=== PATIENT | male | born 1955 | race Caucasian/White ===

== ENCOUNTER 2016-07-29 11:28 | Emergency (ER) | payer OTHER ==
[~2016-07-29] VITALS: Ht 180.3 cm; Wt 104.3 kg
--- OUTSIDE RECORDS SUMMARY | 2016-07-29 11:33 | XMS REPORT | Continuity of Care Document ---
Author Author [facility] Organization [facility] Address Unknown Phone Unavailable Allergies Active Description Code Type Severity Reaction Onset Reported/Identified Relationship to Patient Clinical Status Yes Sulfa (Sulfonamide Antibiotics) [id number] Drug Allergy Unknown N/A 04/29/2016 Medications Problems Date Dx Coded Attending Type Code Diagnosis Diagnosed By 05/18/1448 AMERICO LINDSEY MD, Ot Z47.1 05/18/1448 AMERICO LINDSEY MD Ot Z96.652 07/14/2015 AMERICO LINDSEY MD, Ot Z47.1 07/14/2015 AMERICO LINDSEY MD, Ot Z96.652 07/17/2015 HODAN TRUONG DO Ot M79.89 07/20/2015 HODAN TRUONG DO, Ot M79.89 07/31/2015 AMERICO LINDSEY MD Ot Z47.1 AFTERCARE FOLLOWING JOINT REPLACEMENT NICKERSON 07/31/2015 AMERICO LINDSEY MD Ot Z96.652 PRESENCE OF LEFT ARTIFICIAL KNEE JOINT 04/18/2016 HODAN TRUONG DO Ot M79.89 OTHER SPECIFIED SOFT TISSUE DISORDERS 04/29/2016 PASQUALE ABDULLAHI MD Ot K62.5 HEMORRHAGE OF ANUS AND RECTUM 04/29/2016 PASQUALE ABDULLAHI MD Ot Z01.818 ENCOUNTER FOR OTHER PREPROCEDURAL EXAMIN 05/02/2016 KAYLEN ORTEGA, PASQUALE Alanis Ot K57.90 DVRTCLOS OF INTEST, PART UNSP, W/O PERF 05/02/2016 PASQUALE ABDULLAHI MD Ot K63.5 POLYP OF COLON 05/03/2016 PASQUALE ABDULLAHI MD Ot K57.90 DVRTCLOS OF INTEST, PART UNSP, W/O PERF 05/03/2016 PASQUALE ABDULLAHI MD Ot K63.5 POLYP OF COLON 05/04/2016 PASQUALE ABDULLAHI MD Ot K57.90 DVRTCLOS OF INTEST, PART UNSP, W/O PERF 05/04/2016 PASQUALE ABDULLAHI MD Ot K63.5 POLYP OF COLON 05/08/2016 KAYLEN ORTEGA, PASQUALE Alanis Ot K57.90 DVRTCLOS OF INTEST, PART UNSP, W/O PERF 05/08/2016 PASQUALE ABDULLAHI MD Ot K63.5 POLYP OF COLON 05/18/2016 PASQUALE ABDULLAHI MD Ot K57.90 DVRTCLOS OF INTEST, PART UNSP, W/O PERF 05/18/2016 PASQUALE ABDULLAHI MD, Ot K63.5 POLYP OF COLON Procedures Results Encounters ACCT No. Visit Date/Time Discharge Status Pt. Type Provider Facility Loc./Unit Complaint [id number] 05/02/2016 07:51:00 2015 11:10:00 DIS Outpatient [facility] [id number] 04/29/2016 05:34:00 2015 08:58:00 DIS Outpatient PASQUALE ABDULLAHI MD [facility] PREOP RECTAL BLEEDING [id number] 07/31/2015 14:05:00 2015 14:49:00 DIS Outpatient AMERICO LINDSEY MD [facility] REHAB S/P L TKR [id number] 07/14/2015 10:57:00 ACT Outpatient HODAN TRUONG DO [facility] RAD SWELLING LT KNEE
[2016-07-29 12:12] LABS: BILIRUBIN,URINE NEGATIVE (NEGATIVE); KETONES,URINE NEGATIVE (NEGATIVE); LEUKOCYTE ESTERASE ,URINE NEGATIVE (NEGATIVE); NITRITE,URINE NEGATIVE (NEGATIVE); PH,URINE 6 (5-9); PROTEIN,URINE 1+ (NEGATIVE); UROBILINOGEN,URINE NORMAL (NORMAL)
--- NOTE | 2016-07-29 12:13 | ED Abdominal Pain ---
General Chief Complaint: Abdominal/GI Problems Stated Complaint: LOWER ABD PAIN Source of Information: Patient Exam Limitations: No Limitations History of Present Illness Time Seen By Provider: 12:00 Initial Comments The patient is a 60-year-old white male who reports that he ate peanuts lately yesterday afternoon. About 3 hours later began to have left lower quadrant abdominal pain.. He had had a similar episode some time ago after eating strawberries. He reports that he had a colonoscopy here about 2-3 months ago. He has no recollection of being told he had diverticuli. There is been no previous firm diagnosis of diverticulitis. His last bowel movement was normal last evening. He was seen by Dr. Truong in the office and sent out here for further evaluation. Timing/Duration: 12-24 Hours Severity/Quality: Mild, Moderate Location: LLQ Radiation: No Radiation Activities at Onset: None Allergies and Home Medications Allergies Coded Allergies: Sulfa (Sulfonamide Antibiotics) (Verified Allergy, Unknown, 04/29/16) Home Medications No Active Prescriptions or Reported Meds Review of Systems Constitutional: see HPI EENTM: No Symptoms Reported Respiratory: No Symptoms Reported Cardiovascular: No Symptoms Reported Gastrointestinal: See HPI Genitourinary: No Symptoms Reported Musculoskeletal: no symptoms reported Skin: no symptoms reported Psychiatric/Neurological: No Symptoms Reported Endocrine: No Symptoms Reported Hematologic/Lymphatic: No Symptoms Reported Past Wrwujhu-Batnwr-Yytedj Hx Patient Social History Type Used: Cigarettes Recent Foreign Travel: No Contact w/Someone Who Travel: No Recent Hopitalizations: No Seasonal Allergies Seasonal Allergies: No Surgeries HX Surgeries: Yes (Left TKR) Surgeries: Joint Replacement Respiratory Hx Respiratory Disorders: No Cardiovascular Hx Cardiac Disorders: No Neurological Hx Neurological Disorders: No Genitourinary Hx Genitourinary Disorders: No Gastrointestinal Hx Gastrointestinal Disorders: No Musculoskeletal Hx Musculoskeletal Disorders: Yes Musculoskeletal Disorders: Arthritis Endocrine Hx Endocrine Disorders: No HEENT HX ENT Disorders: No Cancer Hx Cancer: No Psychosocial Hx Psychiatric Problems: No Integumentary HX Skin/Integumentary Disorder: No Blood Transfusions Hx Blood Disorders: No Physical Exam Vital Signs VS - Last 72 Hours, by Label 07/29/16 12:08 Temp 98.2 Pulse 78 Resp 18 B/P 143/92 Pulse Ox 95 O2 Delivery Room Air Capillary Refill : General Appearance: mild distress HEENT: normal ENT inspection Neck: full range of motion Respiratory: chest non-tender lungs clear normal breath sounds no respiratory distress no accessory muscle use Cardiovascular: normal peripheral pulses regular rate, rhythm no edema no gallop no JVD no murmur Gastrointestinal: normal bowel sounds Extremities: normal range of motion non-tender normal inspection no pedal edema no calf tenderness normal capillary refill pelvis stable Back: no CVA tenderness 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 slate II-XII nml as tested no motor/sensory deficits alert normal mood/affect oriented x 3 Skin: normal color warm/dry Lymphatic: no adenopathy Progress/Results/Core Measures Results/Orders Lab Results Laboratory Tests Test 07/29/16 11:50 07/29/16 11:55 Range/Units Urine Bacteria NEGATIVE /HPF Urine Bilirubin NEGATIVE NEGATIVE Urine Casts NONE /LPF Urine Clarity CLEAR Urine Color YELLOW Urine Crystals NONE /LPF Urine Culture Indicated NO Urine Glucose (UA) NEGATIVE NEGATIVE Urine Ketones NEGATIVE NEGATIVE Urine Leukocyte Esterase NEGATIVE NEGATIVE Urine Mucus NEGATIVE /LPF Urine Nitrite NEGATIVE NEGATIVE Urine Protein 1+ H NEGATIVE Urine RBC NONE /HPF Urine RBC (Auto) NEGATIVE NEGATIVE Urine Specific Erwin 1.015 L 1.016-1.022 Urine Squamous Epithelial Cells 0-2 /HPF Urine Urobilinogen NORMAL NORMAL MG/DL Urine WBC NONE /HPF Urine pH 6 5-9 Alanine Aminotransferase (ALT/SGPT) 33 0-55 U/L Albumin 4.4 3.2-4.5 G/DL Alkaline Phosphatase 65 40-136 U/L Anion Gap 12 5-14 MMOL/L Aspartate Amino Transf (AST/SGOT) 21 5-34 U/L BUN/Creatinine Ratio 11 Band Neutrophils 0 % Basophils # (Auto) 0.0 0.0-0.1 10^3/uL Basophils % (Manual) 0 % Basophils (%) (Auto) 0 0-10 % Blood Morphology Comment NORMAL Blood Urea Nitrogen 13 7-18 MG/DL Calcium Level 9.4 8.5-10.1 MG/DL Carbon Dioxide Level 23 21-32 MMOL/L Chloride Level 104 98-107 MMOL/L Creatinine 1.17 0.60-1.30 MG/DL Eosinophils # (Auto) 0.0 0.0-0.3 10^3/uL Eosinophils % (Manual) 0 % Eosinophils (%) (Auto) 0 0-10 % Estimat Glomerular Filtration Rate > 60 Glucose Level 115 H 70-105 MG/DL Hematocrit 46 40-54 % Hemoglobin 15.4 13.3-17.7 G/DL Lymphocytes # (Auto) 1.7 1.0-4.0 X 10^3 Lymphocytes % (Manual) 10 % Lymphocytes (%) (Auto) 9 L 12-44 % Mean Corpuscular Hemoglobin 31 25-34 PG Mean Corpuscular Hemoglobin Concent 33 32-36 G/DL Mean Corpuscular Volume 93 80-99 FL Mean Platelet Volume 11.3 H 7.4-10.4 FL Monocytes # (Auto) 2.5 H 0.0-1.0 X 10^3 Monocytes % (Manual) 10 % Monocytes (%) (Auto) 13 H 0-12 % Neutrophils # (Auto) 14.7 H 1.8-7.8 X 10^3 Neutrophils % (Manual) 80 % Neutrophils (%) (Auto) 78 H 42-75 % Platelet Count 220 130-400 10^3/uL Potassium Level 3.5 L 3.6-5.0 MMOL/L Red Blood Count 4.98 4.35-5.85 10^6/uL Red Cell Distribution Width 13.0 10.0-14.5 % Sodium Level 139 135-145 MMOL/L Total Bilirubin 1.7 H 0.1-1.0 MG/DL Total Protein 8.1 6.4-8.2 G/DL White Blood Count 19.0 H 4.3-11.0 10^3/uL My Orders Orders-AYESHA ROBLES MD Cbc With Automated Diff (07/29/16 11:28) Comprehensive Metabolic Panel (07/29/16 11:28) Ua Culture If Indicated (07/29/16 11:28) Abdomen/Kub 1view (07/29/16 11:28) Manual Differential (07/29/16 11:55) Ct Abdomen/Pelvis W (07/29/16 12:46) Iohexol Injection (Omnipaque 350 Mg/Ml 1 (07/29/16 13:00) Sodium Chloride Flush (Catheter Flush Sy (07/29/16 13:00) Ns (Ivpb) (Sodium Chloride 0.9% Ivpb Bag (07/29/16 13:00) Medications Given in ED Current Medications Medications Dose Ordered Sig/Apple Route Start Time Stop Time Status Last Admin Dose Admin Iohexol 100 ml ONCE ONCE IV 07/29/16 13:00 07/29/16 13:01 DC 07/29/16 12:59 100 ML Sodium Chloride 100 ml ONCE ONCE IV 07/29/16 13:00 07/29/16 13:01 DC 07/29/16 13:00 80 ML Vital Signs/I&O Vital Sign - Last 12Hours 07/29/16 12:08 Temp 98.2 Pulse 78 Resp 18 B/P 143/92 Pulse Ox 95 O2 Delivery Room Air Departure Communication Progress Notes 1320: Dr. Pelaez called to report evidence of sigmoid diverticulitis. CT also showed 3 relatively large gallstone and gallbladder. Impression Impression: Primary Impression: sigmoid diverticulitis Disposition: HOME, SELF-CARE Condition: Stable/Unchanged Departure-Patient Inst. Decision time for Depature: 13:42 Referrals: HODAN TRUONG DO (PCP/Family) Primary Care Physician Patient Instructions: Diverticulitis (DC) Add. Discharge Instructions: All discharge instructions reviewed with patient and/or family. Voiced understanding. Clear liquid diet for 24-48 hours. After that period of time if the pain is tolerable you may slowly increase your diet. Take Cipro and Flagyl as prescribed. If pain uncontrolled return to ER for admission. See Dr. Truong early next week in follow-up Scripts Ciprofloxacin HCl (Cipro)500 Mg [id number] Mg PO twice a day #14 TAB Prov:AYESHA ROBLES MD 07/29/16 Metronidazole (Flagyl)500 Mg [id number] Mg PO 3 times a day #21 TAB Prov:AYESHA ROBLES MD 07/29/16 AYESHA ROBLES MD Jul 29, 2016 12:13
[2016-07-29 12:18] LABS: BASOPHILS % (AUTO) 0 % (0-10); EOSINOPHILS % (AUTO) 0 % (0-10); LYMPHOCYTES # (AUTO) 1.7 X 10^3 (1.0-4.0); LYMPHOCYTES % (AUTO) 9 % (12-44); MEAN CORPUSCULAR HEMOGLOBIN 31 PG (25-34); MEAN CORPUSCULAR HGB CONC 33 G/DL (32-36); MEAN CORPUSCULAR VOLUME 93 FL (80-99); MEAN PLATELET VOLUME 11.3 FL (7.4-10.4); MONOCYTES # (AUTO) 2.5 X 10^3 (0.0-1.0); MONOCYTES % (AUTO) 13 % (0-12); NEUTROPHILS # (AUTO) 14.7 X 10^3 (1.8-7.8); NEUTROPHILS % (AUTO) 78 % (42-75); PLATELET COUNT 220 10^3/uL (130-400); RED BLOOD COUNT 4.98 10^6/uL (4.35-5.85)
[2016-07-29 12:24] LABS: SQUAMOUS EPITHELIAL CELL,UR 0-2 /HPF
[2016-07-29 12:36] LABS: ALANINE AMINOTRANSFERASE 33 U/L (0-55); ALBUMIN 4.4 G/DL (3.2-4.5); ANION GAP 12 MMOL/L (5-14); ASPARTATE AMINO TRANSFERASE 21 U/L (5-34); BILIRUBIN,TOTAL 1.7 MG/DL (0.1-1.0); BLOOD UREA NITROGEN 13 MG/DL (7-18); BUN/CREATININE RATIO 11; CALCIUM 9.4 MG/DL (8.5-10.1); CARBON DIOXIDE 23 MMOL/L (21-32); CHLORIDE 104 MMOL/L (98-107); CREATININE SERUM 1.17 MG/DL (0.60-1.30); GFR ESTIMATED > 60; GLUCOSE 115 MG/DL (70-105); POTASSIUM 3.5 MMOL/L (3.6-5.0); SODIUM 139 MMOL/L (135-145); TOTAL PROTEIN 8.1 G/DL (6.4-8.2)
--- NOTE | 2016-07-29 12:42 | Diagnostic Imaging Report ---
EXAMINATION: Abdomen, supine at 12:37 p.m. INDICATION: Abdominal pain. Two views were obtained. There are no prior studies available for comparison. FINDINGS: There is some gas in both the large and small bowel in a nonspecific fashion. There is no evidence for a bowel obstruction. There is no mass, organomegaly, or pathological calcification evident. The osseous structures are intact. There is moderate symmetrical sclerosis of the sacroiliac joints. The hip joints are fairly well maintained. IMPRESSION: The bowel gas pattern is nonspecific. There is no acute abnormality identified. Dictated by: Dictated on workstation # [id number]
[2016-07-29 12:47] LABS: BAND NEUTROPHILS 0 %; BASOPHILS % (MANUAL) 0 %; EOSINOPHILS % (MANUAL) 0 %; LYMPHOCYTES % (MANUAL) 10 %; NEUTROPHILS % (MANUAL) 80 %
[2016-07-29] MEDS ORDERED: NS 100 ML (IVPB) BAG IV ONE (13:00)
[2016-07-29] MEDS ORDERED: IOHEXOL 350 MG/ML 100 ML (OMNIPAQUE 350) VIAL IV ONE (13:00)
[2016-07-29] MEDS ORDERED: CATHETER FLUSH 10 ML SYR IV PRN (13:00)
--- NOTE | 2016-07-29 13:34 | Diagnostic Imaging Report ---
PROCEDURE: CT abdomen and pelvis with contrast. TECHNIQUE: Multiple contiguous axial images were obtained through the abdomen and pelvis after administration of intravenous contrast. INDICATION: Left lower quadrant pain. There are no prior studies available for comparison. There are numerous diverticula involving the sigmoid and descending colon. There is mild distortion of the pericolonic fat in this region, and most likely there is an element of acute diverticulitis present. The wall of the midportion of the sigmoid colon in this area also seems somewhat thickened. This may be secondary to the suspected inflammation of the colon. The possibility that there is a neoplastic mass in this area should still be considered. I would recommend that endoscopy be performed for further evaluation when the patient's condition permits. There is no diverticular mass or abscess identified. There is no sign of a microperforation either. No other acute abnormality of the abdomen or pelvis is noted. There are a few gallstones within the gallbladder, but there is no sign of acute cholecystitis. The liver is of lower density than usually seen. This does suggest fatty metamorphosis. The spleen, pancreas, kidneys, adrenals, aorta, and inferior vena cava are unremarkable for an acute abnormality. The stomach is only partially filled and consequently not optimally evaluated. There is a small hiatal hernia. The appendix was not particularly well visualized, but there are no indirect signs of acute appendicitis. The cecum does appear to be contiguous with the inflamed portion of the sigmoid colon, however. The urinary bladder is grossly unremarkable as is the prostate gland. The bone windows show no sign of a fracture or of a destructive lesion. The lung bases are clear. IMPRESSION: 1. The findings would be consistent with acute diverticulitis of the sigmoid and descending colon. There is no diverticular mass or abscess identified, however. 2. The thickened appearance of the wall of the midportion of the sigmoid colon may be secondary to the inflammation/infection of the colon. The possibility that there is a neoplastic mass in this area should still be considered. Recommendations as above. 3. There is no acute abnormality of the abdomen or pelvis identified otherwise. The appendix was not well visualized. 4. There is cholelithiasis without evidence for acute cholecystitis. 5. These results were discussed with Dr. Castorena in the ER. Dictated by: Dictated on workstation # [id number]
[2016-07-29] MEDS ORDERED: METR500T PO (13:45)
[2016-07-29] MEDS ORDERED: CIPR-225 PO (13:45)
[2016-07-29 13:57] VITALS: BP 132/85
== END 2016-07-29 13:57 | disposition home or self-care (01) ==
LOC: EDUNIT# 11:28 → ER 11:29
DX: K57.32 Diverticulitis of large intestine without perforation or abscess without bleeding (principal); K80.20 Calculus of gallbladder without cholecystitis without obstruction
CPT/HCPCS: 36415; 74000; 74177; 80053; 81000; 85007; 85027

== ENCOUNTER → 2020-09-07 | Outpatient (CLI) | payer MEDICARE, OTHER ==
[~2020-09-07] MED LIST: CATHETER FLUSH 10 ML SYR IV PRN; CIPR-225 PO; HOLD METFORMIN - RECEIVED CONTRAST 20 ML VIAL IV SCH; IOHEXOL 350 MG/ML 100 ML (OMNIPAQUE 350) VIAL IV ONE; METR500T PO; NS 100 ML (IVPB) BAG IV ONE
[2020-09-07 09:22] LABS: BUN/CREATININE RATIO 13; GFR ESTIMATED > 60
--- NOTE | 2020-09-07 09:55 | Diagnostic Imaging Report ---
CLINICAL INDICATION: Patient midline posterior neck mass. Marker put on area. Patient notices not about a week ago. No history of cancer or surgery. EXAM: Axial CT scan the neck soft tissue performed without IV contrast. Sagittal and coronal reformatted images are created. Auto Exposure Controls were utilized during the CT exam to meet ALARA standards for radiation dose reduction. COMPARISON: None. FINDINGS: There is a fat-containing subtle mass like area involving left of midline and partially crossing midline involving the posterior lower neck region which is in the subcutaneous fat/superficial to the muscular fascia. This area is beneath the BB marker and measures grossly 3.5 cm x 6.9 cm x 3.9 cm. This is most consistent with a lipoma. There is no other significant neck soft tissue abnormality. The nasopharynx, oropharynx, hypopharynx, laryngeal soft tissue structures are unremarkable. The salivary glands and thyroid gland is unremarkable. There is no lymphadenopathy. The visualized portions of lower cavity, tongue, sublingual and submandibular regions are unremarkable. There is minimal atherosclerotic calcification involving bilateral carotid arteries. Visualized upper lung rogers are clear. There is cervical spine degenerative spurs and facet arthropathy. There is grade 1 anterolisthesis C3 on C4 with facet arthropathy/hypertrophy. There is severe bilateral C3-C4 neural foramen narrowing and moderate to severe right and moderate left C4-C5 neural foramen narrowing due to uncinate spurs and facet arthropathy. IMPRESSION: 1: There is a benign-appearing lipoma seen predominantly in the left of midline posterior lower neck region with small amount extending across midline. This area is beneath the BB marker. 2: The remainder of this exam shows no other significant abnormality for patient's age. 3: There is moderate to severe degenerative disease at the C3-C4 and C4-C5 levels. There is grade 1 anterolisthesis of C3 on C4 which is degenerative. Dictated by: Dictated on workstation # [id number]
== END ==
LOC: RAD 08:49
PROVIDERS: ATTEND Otolaryngology Otolaryngology/Facial Plastic Surgery
DX: R22.1 Localized swelling, mass and lump, neck (principal); M50.31 Other cervical disc degeneration, high cervical region; M50.321 Other cervical disc degeneration at C4-C5 level; M43.12 Spondylolisthesis, cervical region
CPT/HCPCS: 36415; 70491; 82565; 84520

== ENCOUNTER 2021-12-06 09:15 | Outpatient (CLI) | payer MEDICARE, OTHER ==
[~2021-12-06] VITALS: Ht 177.8 cm; Wt 104.8 kg
[~2021-12-06 09:15] MED LIST changes: -CATHETER FLUSH 10 ML SYR IV PRN; -HOLD METFORMIN - RECEIVED CONTRAST 20 ML VIAL IV SCH; -IOHEXOL 350 MG/ML 100 ML (OMNIPAQUE 350) VIAL IV ONE; -NS 100 ML (IVPB) BAG IV ONE
[2021-12-07] MEDS ORDERED: LOSA100T57 PO (11:08)
== END 2021-12-07 11:14 | disposition home or self-care (01) ==
LOC: PREOP 09:15
PROVIDERS: ATTEND Surgery
DX: Z01.818 Encounter for other preprocedural examination (principal)

== ENCOUNTER 2021-12-09 09:11 | Day surgery (SDC) | payer MEDICARE, OTHER ==
[~2021-12-09] VITALS: Ht 177 cm; Wt 104.8 kg
[2021-12-09] VITALS (9 sets, daily range): BP systolic 103–156; BP diastolic 64–91
[~2021-12-09 09:11] MED LIST changes: +LOSA100T57 PO
[2021-12-09] MEDS ORDERED: LACTATED RINGERS 1,000 ML IV PRN (09:30)
--- NOTE | 2021-12-09 09:46 | Progress Note-Pre Operative ---
Pre-Operative Progress Note H&P Reviewed The H&P was reviewed, patient examined and no changes noted. Date Seen by Provider: Dec 09, 2021 Time Seen by Provider: 09:45 Date H&P Reviewed: Dec 09, 2021 Time H&P Reviewed: 09:40 Pre-Operative Diagnosis: Posterior neck lipoma YAKOV HUANG APRN Dec 09, 2021 09:46
[2021-12-09] MEDS ORDERED: HYDR-3817 PO (09:48)
--- NOTE | 2021-12-09 09:48 | Discharge Inst-Surgical ---
D/C Lap Instructions-KIDO Reconcile Patient Problems Problems Reviewed?: Yes New, Converted, or Re-Newed RX: RX on Chart Follow Up Appt in 2 weeks Activity as tolerated No driving for 24 hours No driving while on pain medications Incentive Spirometry use every 2 hours while awake Regular Diet Symptoms to Report: Fever over 101 degree F, Nausea/Vomiting Infection Signs and Symptoms to report: Increased redness, Foul odor of wound, Increased drainage Bathing instructions: May shower Operative Area Clean/Dry; Keep incision clean/dry If any problems/questions: Contact your physician or go to Emergency Room YAKOV HUANG APRN Dec 09, 2021 09:48
[2021-12-09] MEDS ORDERED: HYDROcodone/APAP 5 MG/325 MG (LORTAB) TAB PO ONE (10:00)
[2021-12-09] MEDS ORDERED: ONDANSETRON 4 MG/2 ML (SDV) Z0FRAN IVP PRN ×2 (10:00→13:30)
[2021-12-09] MEDS ORDERED: ACETAMINOPHEN 325 MG TABLET PO PRN (10:00)
[2021-12-09] MEDS ORDERED: morphine INJ 10 MG/ML 1ML (SYR OR VIAL) IVP PRN (10:00)
[2021-12-09] MEDS ORDERED: ceFAZolin 2 GM/50 ML (PRE-MIXED) IV ONE (10:30)
[2021-12-09] MEDS ORDERED: LIDOCAINE/EPI 2% 1:200,00 (XYLOCAINE) 20 ML VIAL ONE (11:38)
[2021-12-09] MEDS ORDERED: fentaNYL INJ 100 MCG/2 ML AMP ONE (11:49)
[2021-12-09] MEDS ORDERED: MIDAZOLAM 2 MG/2 ML (VERSED) VIAL ONE (11:49)
[2021-12-09] MEDS ORDERED: ONDANSETRON 4 MG/2 ML (SDV) Z0FRAN ONE (12:24)
[2021-12-09] MEDS ORDERED: LIDOCAINE PF 2% 5 ML (XYLOCAINE) VIAL ONE (12:24)
[2021-12-09] MEDS ORDERED: proPOfol 200 MG/20 ML (DIPRIVAN) VIAL IV ONE (12:24)
--- NOTE | 2021-12-09 12:36 | Progress Note-Post Operative ---
Post-Operative Progess Note Surgeon (s)/Gun Fertilizer (s) Surgeon ELROY MELÉNDEZ MD Gun Fertilizer: none Pre-Operative Diagnosis Posterior neck lipoma Post-Operative Diagnosis same, subfascial(10x5cm) Procedure & Operative Findings Date of Procedure 12/09/21 Procedure Performed/Findings excision subfascial post lipoma(10x5cm) Anesthesia Type get Estimated Blood Loss Estimated blood loss (mL): minimal Specimens/Packing Specimens Removed back lipoma ELROY MELÉNDEZ MD Dec 09, 2021 12:36
[2021-12-09] MEDS ORDERED: SEVOFLURANE (ULTANE) 15 ML INHAL SOLN ONE (12:48)
--- NOTE | 2021-12-09 13:25 | Anesthesia-General Post-Op ---
General Patient Condition Mental Status/LOC: Same as Preop Cardiovascular: Satisfactory Nausea/Vomiting: Absent Respiratory: Satisfactory Pain: Controlled Complications: Absent Post Op Complications Complications None Follow Up Care/Instructions Patient Instructions None needed. Anesthesia/Patient Condition Patient Condition Patient is doing well, no complaints, stable vital signs, no apparent adverse anesthesia problems. No complications reported per nursing. ISRAEL SALAZAR CRNA Dec 09, 2021 13:25
[2021-12-09] MEDS ORDERED: morphine INJ 10 MG/ML 1ML (SYR OR VIAL) IVP ONE (13:30)
--- NOTE | 2021-12-09 17:16 | OPERATIVE REPORT ---
DATE OF SERVICE: 12/09/2021 ATTENDING PRIMARY CARE PHYSICIAN: Dr. Flo Anderson. PREOPERATIVE DIAGNOSIS: Symptomatic base of neck lipoma, subfascial lipoma. POSTOPERATIVE DIAGNOSIS: Symptomatic base of neck lipoma subfascial lipoma with the dimensions of the lipoma, 10 x 5 cm in size. PROCEDURE PERFORMED: Excision subfascial lipoma of the base of the neck 10 x 5 cm in size. SURGEON: Saurabh Meléndez MD. GARBAGE PICK UP WORKER: Angel Henriquez APRN. ANESTHESIA: General endotracheal with local. ESTIMATED BLOOD LOSS: Minimal. FINDINGS: Symptomatic base of neck lipoma subfascial lipoma with the dimensions of the lipoma, 10 x 5 cm in size. DISPOSITION: The patient tolerated the procedure well. INDICATIONS FOR PROCEDURE: The patient is a 55-year-old male, who states that in the past year to year and a half, he developed a lump in the base of the neck midline. He states that it grew larger in size and did become painful. This did get bad enough, where he did see his physician and he was referred to us. He was found to have what appeared to be a subfascial lipoma, which was tender to palpation. DESCRIPTION OF PROCEDURE: The patient was brought to the operating room and laid supine on the table. After adequate IV pain and sedative medications and general endotracheal intubation, the patient was placed in the right lateral decubitus position. The head and neck and back were then prepped and draped in a standard surgical fashion. A 0.5% Marcaine with epinephrine was then used to anesthetize the overlying skin over the lesion. A transverse skin incision was then made using a 15 blade. The subcutaneous tissue and fascia were then opened using electrocautery where a well-organized lipomatous lesion consistent with a benign lipoma identified. This was somewhat fixed and was completely dissected out using blunt dissection as well as electrocautery. We did this in a systematic fashion until completely excised. We had visualization of good hemostasis. The lesion was then measured out at 10 x 5 cm in size. After a good hemostasis, the subcutaneous tissue was reapproximated using 3-0 Vicryl interrupted sutures. Skin was closed using 4-0 Monocryl running subcuticular suture. Wound was then cleaned and covered with Dermabond. The patient tolerated the procedure well. We will start IV normal pain medication as well as a clear liquid diet. Once he is tolerating clears, has good pain control with oral pain medications, and ambulating well, we will discharge him home, where he will be instructed to do no heavy lifting or exertion for the next two weeks. Job ID: [id number] DocumentID: [id number] Dictated Date: 12/09/2021 12:45:03 Return Agent [place] Date: 12/09/2021 17:16:13 Dictated By: SAURABH MELÉNDEZ MD
== END 2021-12-09 14:10 | disposition home or self-care (01) ==
LOC: SDC 09:11
PROVIDERS: ATTEND Surgery
DX: D17.0 Benign lipomatous neoplasm of skin and subcutaneous tissue of head, face and neck (principal); E66.9 Obesity, unspecified; Z68.33 Body mass index [BMI] 33.0-33.9, adult
CPT/HCPCS: 87081